=== PATIENT | female | born 1995 | race African-American/Black ===

== ENCOUNTER 2020-03-09 02:46 | Outpatient (CLI) | payer OTHER ==
[~2020-03-09] VITALS: Ht 160 cm; Wt 76.7 kg
[2020-03-09] MEDS ORDERED: PRENATAL TABLE1 EAC1 PO (02:54)
== END 2020-03-09 18:29 | disposition left against medical advice (07) ==
LOC: NST 02:46 → LDR 02:46 → NST 18:29 → EDSTATUS 03-11 09:19
PROVIDERS: ATTEND Obstetrics & Gynecology
DX: O60.03 Preterm labor without delivery, third trimester (principal)